=== PATIENT | male | born 1940 | race Caucasian/White ===

== ENCOUNTER 2022-01-29 14:25 | Emergency (ER) | payer MEDICARE, OTHER ==
[~2022-01-29 14:25] MED LIST: ADULT LOW DOSE81 MG PO; CARDIZEM CD120 MG PO; EPIPEN 2-P0.3 MG/0.3 INJ; GLUCOPHAGE 850850 MG PO; IMDUR ER TAB 3030 MG PO; LIPITOR40 MG PO; LISINOPRIL20 MG PO; LOPRESSOR 25 MG25 MG PO; NOVOLIN 70100 UNIT/1 SC; ZANTAC 150 MG150 MG PO; ZYRTEC10 M3 PO
== END 2022-01-29 17:33 | disposition home or self-care (01) ==
LOC: ER1 14:25
DX: S86.912A Strain of unspecified muscle(s) and tendon(s) at lower leg level, left leg, initial encounter (principal); M54.50 Low back pain, unspecified; M25.552 Pain in left hip; M47.819 Spondylosis without myelopathy or radiculopathy, site unspecified; E11.9 Type 2 diabetes mellitus without complications; Z79.4 Long term (current) use of insulin; Z88.0 Allergy status to penicillin; X58.XXXA Exposure to other specified factors, initial encounter
CPT/HCPCS: 72131; 72192; 73564; 99284